=== PATIENT | male | born 1965 | race Two or more races ===

== ENCOUNTER 2018-05-16 15:30 | Emergency (ER) | payer MEDICAID ==
[~2018-05-16] VITALS: Ht 177.8 cm; Wt 70.5 kg
[2018-05-16 15:45] VITALS: BP 135/88
[2018-05-16] MEDS ORDERED: ketorolac tromethamine 15mg/ml inj. IM ONE (16:50)
== END 2018-05-16 17:52 | disposition home or self-care (01) ==
LOC: ER 15:31
DX: S80.01XA Contusion of right knee, initial encounter (principal); S30.1XXA Contusion of abdominal wall, initial encounter; S80.811A Abrasion, right lower leg, initial encounter; R07.89 Other chest pain; R10.11 Right upper quadrant pain; R11.2 Nausea with vomiting, unspecified; R31.9 Hematuria, unspecified; E11.9 Type 2 diabetes mellitus without complications; Z88.6 Allergy status to analgesic agent; Z88.5 Allergy status to narcotic agent; Z88.8 Allergy status to other drugs, medicaments and biological substances; Z98.890 Other specified postprocedural states; W19.XXXA Unspecified fall, initial encounter; Y93.89 Activity, other specified; Y92.89 Other specified places as the place of occurrence of the external cause; Y99.8 Other external cause status
CPT/HCPCS: 71045; 74176; 96372; 99284; J1885

== ENCOUNTER 2018-08-23 16:14 | Emergency (ER) | payer MEDICAID ==
[~2018-08-23] VITALS: Ht 172.7 cm; Wt 75.7 kg
[2018-08-23 17:38] VITALS: BP 177/115
[2018-08-23] MEDS ORDERED: normal saline 1000ML IV soln IVB ONE (18:00)
[2018-08-23] MEDS ORDERED: ondansetron/PF 4mg/2ml inj IV ONE (18:00)
[2018-08-23] MEDS: morphine 4 MG/ML inj SYRINge IV PRN ×2 (18:12→18:16)
[2018-08-23 18:44] LABS: BASOPHILS # (AUTO) 0.1 X10'3 (0-0.2); BASOPHILS % (AUTO) 0.6 % (0-1); EOSINOPHILS # (AUTO) 0.5 X10'3 (0-0.9); EOSINOPHILS % (AUTO) 4.4 % (0-6); HEMATOCRIT 41.6 % (42.0-52.0); HEMOGLOBIN 14.5 g/dl (14.0-17.9); LYMPHOCYTES % (AUTO) 17.9 % (21-51); MEAN CORPUSCULAR HEMOGLOBIN 31.4 PG (27.0-31.0); MEAN CORPUSCULAR HGB CONC 34.9 g/dL (33.0-36.5); MEAN CORPUSCULAR VOLUME 90.1 FL (78-98); MEAN PLATELET VOLUME 7.5 FL (7.4-10.4); MONOCYTES # (AUTO) 0.9 X10'3 (0-0.9); MONOCYTES % (AUTO) 7.9 % (2-12); NEUTROPHILS # (AUTO) 7.8 X10'3 (1.8-7.7); NEUTROPHILS % (AUTO) 69.2 % (42-75); PLATELET COUNT 335 X10'3 (140-440); RED BLOOD COUNT 4.62 X10'6 (4.70-6.10); RED CELL DISTRIBUTION WIDTH 12.5 % (11.5-14.5); WHITE BLOOD COUNT 11.3 X10'3 (4.5-11.0)
[2018-08-23] MEDS ORDERED: ketorolac trometh. 30mg/ml inj. IV ONE (18:45)
[2018-08-23] MEDS ORDERED: LORazepam 2 mg/ml vial IV ONE (18:45)
[2018-08-23 18:48] LABS: ALANINE AMINOTRANSFERASE 13 U/L (12-78); ALKALINE PHOSPHATASE 109 IU/L (46-116); ANION GAP 7 (8-16); ASPARTATE AMINO TRANSFERASE 14 U/L (10-37); BILIRUBIN,TOTAL 0.3 MG/DL (0.1-1.0); BLOOD UREA NITROGEN 14 MG/DL (7-18); BUN/CREATININE RATIO 12.5 (5.4-32.0); CHLORIDE 98 MMOL/L (99-107); CREATININE 1.12 MG/DL (0.60-1.10); GLUCOSE 178 MG/DL (70-104); LIPASE 73 U/L (73-393); POTASSIUM 3.1 MMOL/L (3.5-5.1); SODIUM 137 MMOL/L (135-145); TOTAL CARBON DIOXIDE 31.7 MMOL/L (24-32); TOTAL PROTEIN 8.2 G/DL (6.4-8.2); eGFR 68 ML/MIN
[2018-08-23] MEDS ORDERED: potassium Cl 20 mEq SR tablet PO STA (18:56)
[2018-08-23] MEDS ORDERED: fentaNYL/PF 50MCG/1 ML 2ML syringe IV ONE (19:20)
== END 2018-08-23 19:52 | disposition home or self-care (01) ==
LOC: ER 16:15
DX: G43.909 Migraine, unspecified, not intractable, without status migrainosus (principal); R53.1 Weakness; R11.10 Vomiting, unspecified; R06.00 Dyspnea, unspecified; E11.9 Type 2 diabetes mellitus without complications; G89.29 Other chronic pain; Z98.890 Other specified postprocedural states; Z88.6 Allergy status to analgesic agent; Z88.5 Allergy status to narcotic agent; Z88.8 Allergy status to other drugs, medicaments and biological substances
CPT/HCPCS: 36415; 80053; 83690; 85025; 96361; 96374; 96375; 99283; J1885; J2060; J2270; J2405; J3010; J7030

== ENCOUNTER 2018-09-12 15:55 | Emergency (ER) | payer MEDICAID ==
[~2018-09-12] VITALS: Ht 177.8 cm; Wt 68.2 kg
[~2018-09-12 15:55] MED LIST: ONDA8TAB6 PO
[2018-09-12] MEDS ORDERED: ketorolac tromethamine 15mg/ml inj. IM ONE (16:30)
[2018-09-12 17:14] VITALS: BP 120/88
== END 2018-09-12 17:15 | disposition home or self-care (01) ==
LOC: ER 15:56
DX: G89.29 Other chronic pain (principal); M54.5 Low back pain; R06.02 Shortness of breath; E11.9 Type 2 diabetes mellitus without complications; Z98.890 Other specified postprocedural states; Z88.6 Allergy status to analgesic agent; Z88.5 Allergy status to narcotic agent; Z88.8 Allergy status to other drugs, medicaments and biological substances; Z79.899 Other long term (current) drug therapy
CPT/HCPCS: 93005; 96372; 99283; J1885

== ENCOUNTER 2018-09-14 19:23 | Emergency (ER) | payer OTHER, MEDICAID ==
[~2018-09-14] VITALS: Ht 175.3 cm; Wt 75.0 kg
[2018-09-14 19:32] VITALS: BP 113/77
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
[2018-09-14] MEDS ORDERED: LIDOcaine 5% patch TP STA (22:37)
[2018-09-14] MEDS ORDERED: ketorolac tromethamine 15mg/ml inj. IM ONE (22:40)
== END 2018-09-14 22:55 | disposition home or self-care (01) ==
LOC: ER 19:25
DX: M54.41 Lumbago with sciatica, right side (principal); G89.29 Other chronic pain; M54.2 Cervicalgia; E11.9 Type 2 diabetes mellitus without complications; Z98.890 Other specified postprocedural states; Z88.5 Allergy status to narcotic agent; Z88.6 Allergy status to analgesic agent; Z88.8 Allergy status to other drugs, medicaments and biological substances; V43.62XA Car passenger injured in collision with other type car in traffic accident, initial encounter; Y93.89 Activity, other specified; Y92.488 Other paved roadways as the place of occurrence of the external cause; Y99.8 Other external cause status
CPT/HCPCS: 96372; 99283; J1885

== ENCOUNTER 2018-10-01 18:02 | Emergency (ER) | payer MEDICAID, OTHER ==
[~2018-10-01] VITALS: Ht 177.8 cm; Wt 70.5 kg
[2018-10-01 18:11] VITALS: BP 117/80
[2018-10-01] MEDS ORDERED: ketorolac trometh inj. 60 MG/2 ML VIAL IM ONE (18:55)
[2018-10-01] MEDS ORDERED: LIDOcaine 5% patch TP ONE (18:55)
== END 2018-10-01 19:08 | disposition home or self-care (01) ==
LOC: ER 18:04
DX: G89.29 Other chronic pain (principal); M54.2 Cervicalgia; R25.2 Cramp and spasm; E11.9 Type 2 diabetes mellitus without complications; Z98.890 Other specified postprocedural states; Z87.19 Personal history of other diseases of the digestive system; Z88.6 Allergy status to analgesic agent; Z88.8 Allergy status to other drugs, medicaments and biological substances; Z79.899 Other long term (current) drug therapy; V43.62XD Car passenger injured in collision with other type car in traffic accident, subsequent encounter
CPT/HCPCS: 96372; 99283; J1885

== ENCOUNTER 2018-12-25 22:28 | Emergency (ER) | payer MEDICAID ==
[~2018-12-25] VITALS: Ht 177.8 cm; Wt 72.0 kg
[2018-12-25] MEDS ORDERED: ketorolac tromethamine 15mg/ml inj. IV ONE (23:00)
[2018-12-25] MEDS ORDERED: cloNIDine 0.1 mg tablet PO ONE (23:00)
[2018-12-25] MEDS ORDERED: ketorolac tromethamine 15mg/ml inj. IM ONE (23:15)
[2018-12-25 23:24] LABS: CLARITY,URINE CLEAR (Clear); COLOR,URINE STRAW (Yellow); GLUCOSE, URINE NEGATIVE (Neg); KETONES,URINE NEGATIVE (Neg); LEUKOCYTE ESTERASE ,URINE NEGATIVE (Neg); NITRITES, URINE NEGATIVE (Neg); OCCULT BLOOD,URINE NEGATIVE (Neg); PROTEIN,URINE NEGATIVE (Neg); UROBILINOGEN,URINE 0.2 E.U/dL (0.2-1.0)
[2018-12-25 23:26] LABS: BASOPHILS % (AUTO) 0.6 % (0-1); EOSINOPHILS # (AUTO) 0.3 X10'3 (0-0.9); EOSINOPHILS % (AUTO) 3.6 % (0-6); HEMATOCRIT 42.3 % (42.0-52.0); LYMPHOCYTES # (AUTO) 2.7 X10'3 (1.1-4.8); LYMPHOCYTES % (AUTO) 34.8 % (21-51); MEAN CORPUSCULAR HEMOGLOBIN 30.6 PG (27.0-31.0); MEAN CORPUSCULAR HGB CONC 35.3 g/dL (33.0-36.5); MEAN CORPUSCULAR VOLUME 86.7 FL (78-98); MEAN PLATELET VOLUME 7.7 FL (7.4-10.4); MONOCYTES # (AUTO) 0.6 X10'3 (0-0.9); MONOCYTES % (AUTO) 8.1 % (2-12); NEUTROPHILS % (AUTO) 52.9 % (42-75); PLATELET COUNT 297 X10'3 (140-440); RED BLOOD COUNT 4.88 X10'6 (4.70-6.10); RED CELL DISTRIBUTION WIDTH 12.5 % (11.5-14.5); WHITE BLOOD COUNT 7.6 X10'3 (4.5-11.0)
[2018-12-25 23:28] LABS: UA COLLECTION TYPE URINAL
[2018-12-25 23:38] LABS: ALANINE AMINOTRANSFERASE 17 U/L (12-78); ALBUMIN 4.2 G/DL (3.4-5.0); ALKALINE PHOSPHATASE 113 IU/L (46-116); ANION GAP 9 (8-16); ASPARTATE AMINO TRANSFERASE 14 U/L (10-37); BILIRUBIN,TOTAL 0.5 MG/DL (0.1-1.0); BLOOD UREA NITROGEN 12 MG/DL (7-18); BUN/CREATININE RATIO 11.5 (5.4-32.0); CALCIUM 8.9 MG/DL (8.5-10.1); CHLORIDE 100 MMOL/L (99-107); CREATININE 1.04 MG/DL (0.60-1.10); GLUCOSE 158 MG/DL (70-104); LIPASE 146 U/L (73-393); SODIUM 142 MMOL/L (135-145); TOTAL CARBON DIOXIDE 33.4 MMOL/L (24-32); TOTAL PROTEIN 8.4 G/DL (6.4-8.2); eGFR 74 ML/MIN
[2018-12-25 23:41] LABS: POTASSIUM 2.7 MMOL/L (3.5-5.1)
[2018-12-25] MEDS ORDERED: potassium Cl 20 mEq SR tablet PO ONE (23:55)
[2018-12-25] MEDS ORDERED: potassium 10mEq/100ml NS w/LIDOcaine (10mg/bag) IV SCH (23:55)
[2018-12-25] MEDS ORDERED: potassium Cl 10 mEq/100mL bag IV SCH (23:59)
--- NOTE | 2018-12-26 01:14 | NUR ---
PATIENT STATING THAT HIS IV IS HURTING, EXPLAINED TO PATIENT THAT POTASSIUM CAN BURN WHEN GIVEN IV BUT THAT I WOULD SLOW IT DOWN. BUT PATIENT STATED THAT HE DID NOT WANT ANYMORE OF IT AND JUST WANTED TO LEAVE. EXPLAINED IMPORTANCE AND RISKS OF LEAVING AGAINST MEDICAL ADVISE PATIENT STILL WANTS TO LEAVE. MD AWARE.
[2018-12-26 01:46] VITALS: BP 177/68
== END 2018-12-26 01:50 | disposition home or self-care (01) ==
LOC: ER 22:28
DX: E87.6 Hypokalemia (principal); G43.909 Migraine, unspecified, not intractable, without status migrainosus; R10.13 Epigastric pain; I10 Essential (primary) hypertension; E11.9 Type 2 diabetes mellitus without complications; G89.29 Other chronic pain; Z98.890 Other specified postprocedural states; Z88.5 Allergy status to narcotic agent; Z88.6 Allergy status to analgesic agent; Z88.8 Allergy status to other drugs, medicaments and biological substances; Z79.899 Other long term (current) drug therapy
CPT/HCPCS: 36415; 70450; 71046; 80053; 81003; 83690; 85025; 93005; 96372; 96374; 99284; J1885; J3480

== ENCOUNTER 2019-03-28 14:43 | Emergency (ER) | payer MEDICAID ==
[~2019-03-28] VITALS: Ht 177.8 cm; Wt 75.0 kg
[2019-03-28 15:59] LABS: ALANINE AMINOTRANSFERASE 13 U/L (12-78); ALBUMIN 4.3 G/DL (3.4-5.0); ALKALINE PHOSPHATASE 136 IU/L (46-116); ANION GAP 11 (8-16); ASPARTATE AMINO TRANSFERASE 18 U/L (10-37); BILIRUBIN,TOTAL 0.6 MG/DL (0.1-1.0); BLOOD UREA NITROGEN 8 MG/DL (7-18); BUN/CREATININE RATIO 5.7 (5.4-32.0); CALCIUM 8.8 MG/DL (8.5-10.1); CHLORIDE 99 MMOL/L (99-107); GLUCOSE 299 MG/DL (70-104); POTASSIUM 3.4 MMOL/L (3.5-5.1); SODIUM 137 MMOL/L (135-145); TOTAL CARBON DIOXIDE 26.6 MMOL/L (24-32); TOTAL PROTEIN 8.5 G/DL (6.4-8.2); eGFR 53 ML/MIN
[2019-03-28 16:04] LABS: PARTIAL THROMBOPLASTIN TIME 25 SECONDS (22-32)
[2019-03-28 17:02] LABS: BASOPHILS # (AUTO) 0.1 X10'3 (0-0.2); BASOPHILS % (AUTO) 0.5 % (0-1); EOSINOPHILS # (AUTO) 0.3 X10'3 (0-0.9); EOSINOPHILS % (AUTO) 2.3 % (0-6); HEMATOCRIT 44.8 % (42.0-52.0); HEMOGLOBIN 15.5 g/dl (14.0-17.9); LYMPHOCYTES # (AUTO) 2.6 X10'3 (1.1-4.8); MEAN CORPUSCULAR HEMOGLOBIN 29.8 PG (27.0-31.0); MEAN CORPUSCULAR HGB CONC 34.6 g/dL (33.0-36.5); MEAN PLATELET VOLUME 8.3 FL (7.4-10.4); MONOCYTES # (AUTO) 0.8 X10'3 (0-0.9); MONOCYTES % (AUTO) 6.7 % (2-12); NEUTROPHILS # (AUTO) 7.6 X10'3 (1.8-7.7); NEUTROPHILS % (AUTO) 67.5 % (42-75); PLATELET COUNT 380 X10'3 (140-440); RED BLOOD COUNT 5.21 X10'6 (4.70-6.10); RED CELL DISTRIBUTION WIDTH 13.2 % (11.5-14.5); WHITE BLOOD COUNT 11.2 X10'3 (4.5-11.0)
--- NOTE | 2019-03-28 18:21 | NUR ---
PT STATES, I FEEL MY PAIN IS FROM MY PANCREAS.
[2019-03-28 19:15] LABS: TROPONIN I < 0.04 NG/ML (0.0-0.05)
[2019-03-28] MEDS ORDERED: HYDROmorphone 2mg tablet PO ONE (19:55)
[2019-03-28] MEDS ORDERED: normal saline 1000ML IV soln IVB ONE (19:55)
[2019-03-28] MEDS ORDERED: ketorolac trometh. 30mg/ml inj. IV ONE (19:55)
[2019-03-28] MEDS ORDERED: SUMAtriptan succ. 6 MG/0.5ml vial SQ ONE (19:55)
[2019-03-28] MEDS: morphine 10mg/ml inj. IM ONE ×2 (20:08→20:14)
[2019-03-28 20:12] LABS: LIPASE 181 U/L (73-393); MAGNESIUM 1.6 MG/DL (1.5-2.4)
--- NOTE | 2019-03-28 20:54 | NUR ---
Patient reports 8/10 pain and states that it is, "much better than a 10."
[2019-03-28 21:19] VITALS: BP 157/90
== END 2019-03-28 21:20 | disposition home or self-care (01) ==
LOC: ER 14:44
DX: G43.909 Migraine, unspecified, not intractable, without status migrainosus (principal); G89.29 Other chronic pain; M54.2 Cervicalgia; R50.9 Fever, unspecified; R07.89 Other chest pain; E11.9 Type 2 diabetes mellitus without complications; Z98.890 Other specified postprocedural states; Z88.5 Allergy status to narcotic agent; Z88.6 Allergy status to analgesic agent; Z88.8 Allergy status to other drugs, medicaments and biological substances; Z79.899 Other long term (current) drug therapy
CPT/HCPCS: 36415; 71045; 80053; 83690; 83735; 84484; 85025; 85610; 85730; 93005; 96372; 96374; 99284; J1885; J7030; J2270; J3030

== ENCOUNTER 2019-04-21 14:41 | Emergency (ER) | payer MEDICAID ==
[~2019-04-21] VITALS: Ht 175.3 cm; Wt 80.0 kg
[2019-04-21 14:45] VITALS: BP 139/85
[2019-04-21] MEDS ORDERED: ketorolac trometh inj. 60 MG/2 ML VIAL IM ONE (15:10)
[2019-04-21] MEDS ORDERED: SULF1TAB49 PO (15:11)
[2019-04-21] MEDS ORDERED: MUPI22OI30 TOP (15:11)
== END 2019-04-21 15:27 | disposition home or self-care (01) ==
LOC: ER 14:42
DX: J34.0 Abscess, furuncle and carbuncle of nose (principal); E11.9 Type 2 diabetes mellitus without complications; G89.29 Other chronic pain; Z98.890 Other specified postprocedural states; Z88.5 Allergy status to narcotic agent; Z88.6 Allergy status to analgesic agent; Z88.8 Allergy status to other drugs, medicaments and biological substances; Z79.2 Long term (current) use of antibiotics; Z79.899 Other long term (current) drug therapy
CPT/HCPCS: 96372; 99283; J1885

== ENCOUNTER 2019-06-21 15:05 | Emergency (ER) | payer MEDICAID ==
[~2019-06-21] VITALS: Ht 177.8 cm; Wt 72.3 kg
[2019-06-21 15:10] VITALS: BP 127/84
[2019-06-21] MEDS ORDERED: DOXY100C43 PO (17:01)
== END 2019-06-21 17:27 | disposition home or self-care (01) ==
LOC: ER 15:06
DX: J40 Bronchitis, not specified as acute or chronic (principal); Z20.828 Contact with and (suspected) exposure to other viral communicable diseases; E11.9 Type 2 diabetes mellitus without complications; G89.29 Other chronic pain; Z11.59 Encounter for screening for other viral diseases; Z98.890 Other specified postprocedural states; Z88.5 Allergy status to narcotic agent; Z88.6 Allergy status to analgesic agent; Z88.8 Allergy status to other drugs, medicaments and biological substances; Z79.899 Other long term (current) drug therapy
CPT/HCPCS: 36415; 71045; 93005; 99285; C9803; U0003; 99284